=== PATIENT | female | born 1940 | race Caucasian/White ===

== ENCOUNTER 2017-11-01 16:20 | Inpatient (IN) ==
[2017-11-02] MEDS ORDERED: Ibuprofen 800 MG TABLET PO PRN (01:00)
[2017-11-02] MEDS ORDERED: Acetaminophen 325 MG TABLET PO PRN (01:00)
[2017-11-02 05:11] LABS: Basophils % 0.2 %; Eosinophils # 0.2 K/mcL (0.0-0.6); Eosinophils % 3.7 %; Hematocrit 31.8 % (35.3-44.9); Hemoglobin 10.2 g/dL (11.5-15.4); Immature Granulocytes % 1.3 % (0-4); Lymphocytes # 0.6 K/mcL (0.6-4.6); Lymphocytes % 12.7 %; Mean Corpuscular HGB Conc 32.1 g/dL (31.6-35.5); Mean Corpuscular Volume 90.3 fL (83.0-100.0); Mean Platelet Volume 10.1 fL (9.4-12.4); Monocytes # 0.3 K/mcL (0.0-1.3); Monocytes % 6.6 %; Neutrophils # 3.4 K/mcL (1.6-8.9); Platelet Count 169 K/mcL (140-400); Red Blood Count 3.52 M/mcL (3.82-4.97); Red Cell Distribution Width 14.9 % (11.5-14.5); Segmented Neutrophils % 75.5 %
[2017-11-02 05:17] LABS: INR 1.1
[2017-11-02 05:20] LABS: Activated Partial Thrombo Time 25.6 Seconds (26.0-36.0)
[2017-11-02 05:26] LABS: BUN/Creatinine Ratio 13 (6-26); Blood Urea Nitrogen 7 mg/dL (7-20); Calcium 8.8 mg/dL (8.6-10.8); Carbon Dioxide 27 mEq/L (19-29); Chloride 108 mEq/L (98-109); Glucose 108 mg/dL (70-99); Osmolality,Calculated 291 (280-300); Potassium 3.7 mEq/L (3.5-4.5); Sodium 141 mEq/L (136-145); eGFR For African Americans > 60 (> 60); eGFR For Non-African Americans > 60 (> 60)
[2017-11-02] MEDS: *HR* OxyCODONE/APAP 5/325 TABLET PO PRN (07:08)
[2017-11-02] MEDS: Aspirin Enteric Coated 325 MG Tablet PO SCH ×2 (08:28→20:36)
--- NOTE | 2017-11-02 13:39 | Internal Med History&Physical ---
Date of Encounter: 11/02/17 Time of Encounter: 13:36 Assessment and Plan (1) S/P hip replacement Current visit: Yes Status: Acute Right hip surgical incision appears clean and dry with no soft signs of infectious process. Patient participating in physical therapy but noted difficulty when attempting to stand using a walker. We will continue with current therapy. Pain well-controlled with current oral medications. Qualifiers: Laterality: right Qualified Code(s): Z96.641 - Presence of right artificial hip joint (2) HTN (hypertension) Current visit: Yes Status: Acute No acute issues. Vital signs stable. We will continue with current medications. Qualifiers: Hypertension type: essential hypertension Qualified Code(s): I10 - Essential (primary) hypertension (3) Hiatal hernia Current visit: Yes Status: Chronic Patient with recent history, during her hospital stay of esophageal obstruction secondary to her hiatal hernia requiring an EGD for disimpaction. Patient will continue on a full liquid diet until her follow-up with GI and a possible surgeon. Patient along history of hiatal hernia. We will evaluate patient's most recent labs for albumin and prealbumin. We will have dietary evaluate patient for possible need of supplements. Internal Medicine - H&P: HPI Admitted From: Intrahospital Transfer Plans for Post Hospital Care: Home History of present illness: Ms. Webb is a 77 year old female who was admitted to this facility for physical therapy and rehabilitation secondary to a right hip replacement. Patient states long history of osteoarthritis and progress, leading to the need for right hip replacement. Patient progressed well with recovery from her hip replacement patient did have one incident during her admission during which she was choking followed by several days of dysphagia. Patient was evaluated by GI who performed an EGD. Patient was found to have a very large hiatal hernia. Per patient's medical records she had been surgically treated remotely approximately 10 years ago for a hiatal hernia and relates no issues since that time. Patient had a second EGD during her hospitalization during which she had an implantation of food removed from the hiatal hernia. Patient has remained on a full liquid diet since that time with plans for her to follow with GI and surgery at recovery from her hip. Patient denies any current discomforts or shortness of breath. Past Med Surg Social Fam HX - Past Medical History Source: patient, old records reviewed Medical history: arthritis, cancer, hypertension, thyroid disease, other Psychiatric history: anxiety, depression - Past Surgical History Surgical History: appendectomy, breast surgery, , cholecystectomy, hip replacement, hysterectomy, thyroidectomy - Social History Smoking Status: Current every day smoker Smokeless Tobacco Status: No Alcohol use: none Drug use: none Current living situation: Home, With Family Activity Level: Independent ambulation Recent Out of Country Travel Within the Last 8 Weeks: No Exposure or Possible Exposure to Illness During Travel: No - Family History Mother History Unknown: Yes Father History Unknown: Yes Internal Medicine - H&P: Meds Acetaminophen [Tylenol] 650 mg PO Q6HR PRN 11/01/17 [History] Aspirin Enteric Coated [Aspirin EC] 325 mg PO BID 11/01/17 [History] Clorazepate Dipotassium [Tranxene T-Tab] 7.5 mg PO TID PRN 11/01/17 [History] Ibuprofen [Motrin] 800 mg PO BID PRN 11/01/17 [History] Levothyroxine [Synthroid] 50 mcg PO 0630 11/01/17 [History] Meloxicam [Mobic] 7.5 mg PO DAILY 11/01/17 [History] OxyCODONE/APAP 5/325 [Percocet 5/325 MG] 1 each PO Q4HR PRN 11/01/17 [History] OxyCODONE/APAP 5/325 [Percocet 5/325 MG] 2 each PO Q4HR PRN 11/01/17 [History] Propranolol [Inderal] 80 mg PO TID 11/01/17 [History] Sertraline [Zoloft] 100 mg PO DAILY 11/01/17 [History] Triamterene/Hydrochlorothiazid [Dyazide 37.5-25 Capsule] 1 cap PO DAILY [History] 3 Allergy/AdvReac Type Severity Reaction Status Date / Time No Known Allergies Allergy Verified 11/01/17 23:29 All Systems PM: A 10-system review of systems was performed and is negative for pertinent findings except as documented above in the HPI. - Constitutional Vitals: Temp Pulse Resp BP Pulse Ox 98.2 F 98 18 105/72 98 11/02/17 11:55 11/02/17 12:59 11/02/17 12:59 11/02/17 12:59 11/02/17 12:59 General appearance: Present: A&O X 3, pleasant, obese - Head Head exam: Present: atraumatic, normocephalic - Eye Eye exam: Present: EOMI - Neck Neck exam general surgery: Present: supple, trachea midline. Absent: lymphadenopathy - Respiratory Respiratory exam: Present: CTAB. Absent: accessory muscle use, rales, rhonchi, wheezes - Cardiovascular Cardiovascular exam: Present: RRR, +S1, +S2. Absent: diastolic murmur, gallop, rubs, systolic murmur - GI/Abdominal GI/Abdominal exam: Present: normal bowel sounds, soft, no peritoneal signs. Absent: distended, tenderness - Extremities Exam Extremities exam: Present: warm, radial pulses palpable and symmetrical. Absent : calf tenderness, cyanotic, pedal edema Additional comments: Right hip surgical site appears clean and intact. No edema or erythema noted. - Neurological Exam Neurological exam: Present: CN II-XII intact, oriented X3, no focal deficits. Absent: pronater drift, facial droop, speech deficit - Skin Skin exam: Present: dry, intact Internal Med - H&P Results - Labs CBC & Chem 7: 11/02/17 04:30 11/02/17 04:30 Labs: Short CBC 11/02/17 Range/Units 04:30 WBC 4.6 (4.3-11.1) K/mcL Hgb 10.2 L (11.5-15.4) g/dL Hct 31.8 L (35.3-44.9) % Plt Count 169 (140-400) K/mcL Neutrophils # 3.4 (1.6-8.9) K/mcL BMP 11/02/17 04:30 Sodium 141 Potassium 3.7 Chloride 108 Carbon Dioxide 27 BUN 7 Creatinine 0.52 L Glucose 108 H Calcium 8.8
[2017-11-03] MEDS: *HR* OxyCODONE/APAP 5/325 TABLET PO PRN ×2 (04:42→15:00)
[2017-11-03] MEDS: Aspirin Enteric Coated 325 MG Tablet PO SCH ×2 (08:41→23:35)
[2017-11-03 09:50] LABS: Alanine Aminotransferase 27 Units/L (0-55); Albumin 2.3 g/dL (3.5-5.0); Albumin/Globulin Ratio 0.7 (1.1-2.2); Alkaline Phosphatase 80 Units/L (38-126); Aspartate Amino Transferase 35 Units/L (5-34); BUN/Creatinine Ratio 10 (6-26); Bilirubin,Total 0.6 mg/dL (0.2-1.2); Blood Urea Nitrogen 6 mg/dL (7-20); Calcium 9.4 mg/dL (8.6-10.8); Carbon Dioxide 30 mEq/L (19-29); Chloride 105 mEq/L (98-109); Globulin 3.4 g/dL (2.4-3.5); Glucose 98 mg/dL (70-99); Osmolality,Calculated 294 (280-300); Potassium 3.9 mEq/L (3.5-4.5); Sodium 143 mEq/L (136-145); Total Protein 5.7 g/dL (6.0-8.3); eGFR For African Americans > 60 (> 60); eGFR For Non-African Americans > 60 (> 60)
--- NOTE | 2017-11-03 10:59 | Internal Med Progress Note ---
Date of Encounter: 11/03/17 Time of Encounter: 10:54 - Assessment and plan (1) S/P hip replacement Current Visit: Yes Status: Acute Assessment and plan: - participating in rehabilitation - Anticipate to improve - PT eval recommendation for 2-3 wks and OT for 1-2 wks - Pain management with Tylenol scheduled and oxycodone for breakthrough pain - will continue to evaluate Qualifiers: Laterality: right Qualified Code(s): Z96.641 - Presence of right artificial hip joint (2) HTN (hypertension) Current Visit: Yes Status: Acute Assessment and plan: - Essential HTN, unsure of BP goal - Today BP low, and nursing holding meds - Will continue to monitor, pt not dizzy Qualifiers: Hypertension type: essential hypertension Qualified Code(s): I10 - Essential (primary) hypertension (3) Hiatal hernia Current Visit: Yes Status: Chronic Assessment and plan: - Evaluation by GI prior to rehab indicated esophageal obstruction - Continue liquid diet for now - GI evaluation with surgical intervention post rehab - Time Spent With Patient 25 - 35 minutes - Subjective Interval history: Pt reported that she is experiencing right sided hip/back pain. Related this to the time that she being transfered in the ambulance. Pain is ache, 3/10 none radiating, localized, and better with rubbing and ice. Apetite is intact although she is eating a liquid diet Able to participate in rehabilitation as well with out any difficulties, denied any Shortness of breath and indicated that the oxygen is used to help her breathing and that suction is also used to help her as well. No abdomial pain reported, and having adequate BM/Urination as well. Happy and content with spending Sarah in Rehab. Has family involved - Constitutional Vitals: Temp Pulse Resp BP Pulse Ox 98.5 F 92 16 97/60 92 11/03/17 07:23 11/03/17 07:23 11/02/17 19:18 11/03/17 07:23 11/03/17 07:23 General appearance: Present: A&O X 3, pleasant, obese - Head Head exam: Present: atraumatic, normocephalic - Neck Neck exam general surgery: Present: supple, trachea midline. Absent: lymphadenopathy - Respiratory Respiratory exam: Present: decreased breath sounds. Absent: respiratory distress, rhonchi, stridor, wheezes Additional comments: Decreased breath sounds at the bases - Cardiovascular Cardiovascular exam: Present: RRR, +S1, +S2. Absent: diastolic murmur, gallop, rubs, systolic murmur - GI/Abdominal GI/Abdominal exam: Present: normal bowel sounds, soft, no peritoneal signs. Absent: distended, tenderness - Extremities Exam Extremities exam: Present: warm, radial pulses palpable and symmetrical. Absent : calf tenderness, cyanotic, pedal edema - Back Exam Back exam: Absent: CVA tenderness (L), CVA tenderness (R), muscle spasm Additional comments: right hip incision dry and intact. Some localized erythema but no purluance observed Back palpated and doesn't show any spine tenderness Internal Medicine: Result - Labs CBC & Chem 7: 11/02/17 04:30 11/03/17 08:25 Labs: BMP 11/03/17 08:25 Sodium 143 Potassium 3.9 Chloride 105 Carbon Dioxide 30 H BUN 6 L Creatinine 0.61 Glucose 98 Calcium 9.4 Liver Function 11/03/17 Range/Units 08:25 Total Bilirubin 0.6 (0.2-1.2) mg/dL AST 35 H (5-34) Units/L ALT 27 (0-55) Units/L Alkaline Phosphatase 80 (38-126) Units/L Albumin 2.3 L (3.5-5.0) g/dL - ABG Interpretation ABG results: PT/INR, D-dimer PT 12.0 Seconds (9.4-12.1) 11/02/17 04:30 - VTE Documentation of Mechanical Device: Graduated compression elastic hosiery Consult Discharge Plan - Plan Referrals: Nura Kohler MD [Primary Care Provider] -
[2017-11-03] MEDS: Acetaminophen 325 MG TABLET PO SCH ×2 (18:29→23:35)
[2017-11-04] MEDS: Aspirin Enteric Coated 325 MG Tablet PO SCH ×2 (09:15→21:22)
[2017-11-04] MEDS: Acetaminophen 325 MG TABLET PO SCH ×2 (09:15→19:04)
--- NOTE | 2017-11-04 10:56 | Internal Med Progress Note ---
Date of Encounter: 11/04/17 Time of Encounter: 10:53 - Assessment and plan (1) S/P hip replacement Current Visit: Yes Status: Acute Assessment and plan: - participating in rehabilitation - Anticipate to improve - PT eval recommendation for 2-3 wks and OT for 1-2 wks - Pain management with Tylenol scheduled and oxycodone for breakthrough pain - will continue to evaluate Qualifiers: Laterality: right Qualified Code(s): Z96.641 - Presence of right artificial hip joint (2) HTN (hypertension) Current Visit: Yes Status: Acute Assessment and plan: - Essential HTN, unsure of BP goal. She continues to be on the low side - Today BP low, and nursing holding meds again as needed - Changed Dyazide to q48h - Will continue to monitor, pt not dizzy Qualifiers: Hypertension type: essential hypertension Qualified Code(s): I10 - Essential (primary) hypertension (3) Hiatal hernia Current Visit: Yes Status: Chronic Assessment and plan: - Evaluation by GI prior to rehab indicated esophageal obstruction - Continue liquid diet for now - GI evaluation with surgical intervention post rehab - Time Spent With Patient less than 15 minutes - Subjective Interval history: Pt reported that she has experienced increased frequency of urination and has asked that she take her diuretic early in the day. Her pain still prevents her from sleep. Overll, believes that her apetite is still good, and remains to be motivated and in great spirits. Still using the oxygen but reported that she has been titrated down. She hadn't use the IS yet. Family are planning to surprise her on [place], and she heard about that from the town. - Constitutional Vitals: Temp Pulse Resp BP Pulse Ox 98.5 F 63 15 100/60 95 11/03/17 19:00 11/03/17 19:00 11/03/17 19:00 11/03/17 19:00 11/03/17 19:00 General appearance: Present: A&O X 3, pleasant, obese - Head Head exam: Present: atraumatic, normocephalic - Eye Eye exam: Present: PERRL, conjuntiva pink, sclera anicteric Pupils: Present: PERRL - Neck Neck exam general surgery: Present: supple, trachea midline. Absent: lymphadenopathy - Respiratory Respiratory exam: Present: CTAB. Absent: accessory muscle use, rales, rhonchi, wheezes - Cardiovascular Cardiovascular exam: Present: RRR, +S1, +S2. Absent: diastolic murmur, gallop, rubs, systolic murmur - GI/Abdominal GI/Abdominal exam: Present: normal bowel sounds, soft, no peritoneal signs. Absent: distended, tenderness - Extremities Exam Extremities exam: Present: warm, radial pulses palpable and symmetrical. Absent : calf tenderness, cyanotic, pedal edema - Neurological Exam Neurological exam: Present: CN II-XII intact, oriented X3, no focal deficits. Absent: pronater drift, facial droop, speech deficit - Skin Skin exam: Present: dry, intact Internal Medicine: Result - Labs CBC & Chem 7: 11/02/17 04:30 11/03/17 08:25 - ABG Interpretation ABG results: PT/INR, D-dimer PT 12.0 Seconds (9.4-12.1) 11/02/17 04:30 - VTE Documentation of Mechanical Device: Graduated compression elastic hosiery Consult Discharge Plan - Plan Referrals: Nura Kohler MD [Primary Care Provider] -
[2017-11-04] MEDS: *HR* OxyCODONE/APAP 5/325 TABLET PO PRN (21:22)
[2017-11-05] MEDS: Acetaminophen 325 MG TABLET PO SCH ×3 (00:47→16:27)
[2017-11-05] MEDS: *HR* OxyCODONE/APAP 5/325 TABLET PO PRN ×2 (04:58→20:22)
[2017-11-05 05:23] LABS: Basophils % 0.2 %; Eosinophils # 0.2 K/mcL (0.0-0.6); Eosinophils % 3.9 %; Hematocrit 34.8 % (35.3-44.9); Immature Granulocytes % 1.1 % (0-4); Lymphocytes # 0.8 K/mcL (0.6-4.6); Lymphocytes % 18.6 %; Mean Corpuscular HGB Conc 31.6 g/dL (31.6-35.5); Mean Corpuscular Hemoglobin 29.1 pg (28.0-33.3); Mean Corpuscular Volume 92.1 fL (83.0-100.0); Mean Platelet Volume 10.1 fL (9.4-12.4); Monocytes # 0.3 K/mcL (0.0-1.3); Monocytes % 7.4 %; Nucleated Red Blood Cells 0.5 /100 WBC (0); Platelet Count 192 K/mcL (140-400); Red Blood Count 3.78 M/mcL (3.82-4.97); Red Cell Distribution Width 15.7 % (11.5-14.5); Segmented Neutrophils % 68.8 %
[2017-11-05 06:06] LABS: Potassium 3.7 mEq/L (3.5-4.5); Sodium 141 mEq/L (136-145)
[2017-11-05 06:07] LABS: BUN/Creatinine Ratio 13 (6-26); Blood Urea Nitrogen 7 mg/dL (7-20); Carbon Dioxide 31 mEq/L (19-29); Chloride 102 mEq/L (98-109); Glucose 85 mg/dL (70-99); Osmolality,Calculated 289 (280-300); eGFR For African Americans > 60 (> 60); eGFR For Non-African Americans > 60 (> 60)
[2017-11-05] MEDS: Aspirin Enteric Coated 325 MG Tablet PO SCH ×2 (09:38→20:22)
--- NOTE | 2017-11-05 14:09 | Internal Med Progress Note ---
Date of Encounter: 11/05/17 Time of Encounter: 14:07 - Assessment and plan (1) S/P hip replacement Current Visit: Yes Status: Acute Assessment and plan: - participating in rehabilitation - Anticipate to improve - PT eval recommendation for 2-3 wks and OT for 1-2 wks - Pain management with Tylenol scheduled and oxycodone for breakthrough pain - will continue to evaluate Qualifiers: Laterality: right Qualified Code(s): Z96.641 - Presence of right artificial hip joint (2) HTN (hypertension) Current Visit: Yes Status: Acute Assessment and plan: - Essential HTN, unsure of BP goal but given no MO/strokes in the past, goal should be <150/90. She continues to be on the low side - Today BP low, and nursing holding meds again as needed - Hold BP meds if <110/60 - Changed Dyazide to q48h - Would consider decreasing propranolol - Will continue to monitor, pt not dizzy Qualifiers: Hypertension type: essential hypertension Qualified Code(s): I10 - Essential (primary) hypertension (3) Hiatal hernia Current Visit: Yes Status: Chronic Assessment and plan: - Evaluation by GI prior to rehab indicated esophageal obstruction - Continue liquid diet for now - GI evaluation with surgical intervention post rehab - Time Spent With Patient 25 - 35 minutes - Subjective Interval history: Pt reported that she is finally happy about getting a full night sleep. She has requested the pain meds before bed, and her urinary frequency has decreased after we have adjusted her diuretic medication. She continues to be on half a liter of oxygen and she is experiencing runny nose at times, with some intermittent bleeds as well. None that continued. She continues to use the suction as before, and denied any GI/ symtpoms. Her pain is overall is controlled and the patch has helped with her back. - Constitutional Vitals: Temp Pulse Resp BP Pulse Ox 99.3 F 75 18 93/55 84 11/05/17 07:00 11/05/17 07:00 11/04/17 19:00 11/05/17 07:00 11/05/17 07:00 General appearance: Present: A&O X 3, pleasant, obese - Head Head exam: Present: atraumatic, normocephalic - Eye Eye exam: Present: PERRL, conjuntiva pink, sclera anicteric Pupils: Present: PERRL - Neck Neck exam general surgery: Present: supple, trachea midline. Absent: lymphadenopathy - Respiratory Respiratory exam: Present: CTAB. Absent: accessory muscle use, rales, rhonchi, wheezes - Cardiovascular Cardiovascular exam: Present: RRR, +S1, +S2. Absent: diastolic murmur, gallop, rubs, systolic murmur - GI/Abdominal GI/Abdominal exam: Present: normal bowel sounds, soft, no peritoneal signs. Absent: distended, tenderness - Extremities Exam Extremities exam: Present: warm, radial pulses palpable and symmetrical. Absent : calf tenderness, cyanotic, pedal edema - Neurological Exam Neurological exam: Present: CN II-XII intact, oriented X3, no focal deficits. Absent: pronater drift, facial droop, speech deficit - Skin Skin exam: Present: dry, intact Internal Medicine: Result - Labs CBC & Chem 7: 11/05/17 04:30 11/05/17 04:30 Labs: Short CBC 11/05/17 Range/Units 04:30 WBC 4.4 (4.3-11.1) K/mcL Hgb 11.0 L (11.5-15.4) g/dL Hct 34.8 L (35.3-44.9) % Plt Count 192 (140-400) K/mcL Neutrophils # 3.0 (1.6-8.9) K/mcL BMP 11/05/17 04:30 Sodium 141 Potassium 3.7 Chloride 102 Carbon Dioxide 31 H BUN 7 Creatinine 0.56 L Glucose 85 Calcium 9.0 - ABG Interpretation ABG results: PT/INR, D-dimer PT 12.0 Seconds (9.4-12.1) 11/02/17 04:30 - VTE Documentation of Mechanical Device: Graduated compression elastic hosiery Consult Discharge Plan - Plan Referrals: Nura Kohler MD [Primary Care Provider] -
[2017-11-06] MEDS: Acetaminophen 325 MG TABLET PO SCH ×3 (00:30→16:35)
[2017-11-06] MEDS: *HR* OxyCODONE/APAP 5/325 TABLET PO PRN ×2 (05:27→19:57)
[2017-11-06] MEDS: Aspirin Enteric Coated 325 MG Tablet PO SCH ×2 (08:23→19:57)
--- NOTE | 2017-11-06 13:16 | Internal Med Progress Note ---
Date of Encounter: 11/06/17 Time of Encounter: 13:14 - Assessment and plan (1) S/P hip replacement Current Visit: Yes Status: Acute Assessment and plan: - participating in rehabilitation PT/OT - Anticipate to improve -follow up with ortho as scheduled. - Pain management with Tylenol scheduled and oxycodone for breakthrough pain - will continue to evaluate Qualifiers: Laterality: right Qualified Code(s): Z96.641 - Presence of right artificial hip joint (2) HTN (hypertension) Current Visit: Yes Status: Acute Assessment and plan: - stable with current meds. monitor BP Qualifiers: Hypertension type: essential hypertension Qualified Code(s): I10 - Essential (primary) hypertension - Time Spent With Patient less than 15 minutes - Subjective Interval history: participating well with therapy. states pain is controlled with current pain regimen. bowels moving normally. appetite good and maintaining hydration. denies any needs at this time. - Constitutional Vitals: Temp Pulse Resp BP Pulse Ox 97.9 F 76 18 107/63 89 11/06/17 06:59 11/06/17 06:59 11/06/17 06:59 11/06/17 06:59 11/06/17 06:59 General appearance: Present: A&O X 3, pleasant, obese, answers questions appropriately - Head Head exam: Present: atraumatic, normocephalic - Eye Eye exam: Present: PERRL, conjuntiva pink, sclera anicteric Pupils: Present: PERRL - Neck Neck exam general surgery: Present: supple, trachea midline. Absent: lymphadenopathy - Respiratory Respiratory exam: Present: CTAB. Absent: accessory muscle use, rales, rhonchi, wheezes - Cardiovascular Cardiovascular exam: Present: RRR, +S1, +S2. Absent: diastolic murmur, gallop, rubs, systolic murmur - GI/Abdominal GI/Abdominal exam: Present: normal bowel sounds, soft, no peritoneal signs. Absent: distended, tenderness - Extremities Exam Extremities exam: Present: warm, radial pulses palpable and symmetrical. Absent : calf tenderness, cyanotic, pedal edema Additional comments: slight nonpitting BLE edema - Neurological Exam Neurological exam: Present: CN II-XII intact, oriented X3, no focal deficits. Absent: pronater drift, facial droop, speech deficit - Skin Skin exam: Present: dry, intact Additional comments: right hip: drsg appears dry and intact. no redness or signs of infection. Internal Medicine: Result - Labs CBC & Chem 7: 11/05/17 04:30 11/05/17 04:30 - ABG Interpretation ABG results: PT/INR, D-dimer PT 12.0 Seconds (9.4-12.1) 11/02/17 04:30 - VTE Documentation of Mechanical Device: Graduated compression elastic hosiery Consult Discharge Plan - Plan Referrals: Nura Kohler MD [Primary Care Provider] -
[2017-11-07] MEDS: Acetaminophen 325 MG TABLET PO SCH ×3 (01:12→17:46)
[2017-11-07] MEDS: *HR* OxyCODONE/APAP 5/325 TABLET PO PRN ×2 (06:07→19:55)
[2017-11-07] MEDS: Aspirin Enteric Coated 325 MG Tablet PO SCH ×2 (09:07→19:54)
--- NOTE | 2017-11-07 11:21 | Internal Med Progress Note ---
Date of Encounter: 11/07/17 Time of Encounter: 11:19 - Assessment and plan (1) S/P hip replacement Current Visit: Yes Status: Acute Assessment and plan: - participating in rehabilitation PT/OT -follow up with ortho as scheduled. - Pain management with Tylenol scheduled and oxycodone for breakthrough pain - will continue to evaluate Qualifiers: Laterality: right Qualified Code(s): Z96.641 - Presence of right artificial hip joint (2) HTN (hypertension) Current Visit: Yes Status: Acute Assessment and plan: - stable with current meds. monitor BP Qualifiers: Hypertension type: essential hypertension Qualified Code(s): I10 - Essential (primary) hypertension - Time Spent With Patient less than 15 minutes - Subjective Interval history: wearing O2 at 1 liter with sats running 92%. encouraged and instructed incentive spirometer use. will attempt to tirate off of O2. pt state she ends up on oxygen for at least 1 week after every surgery she has had. participating well with therapy. states pain is controlled with current pain regimen. bowels moving normally. appetite good and maintaining hydration. denies any needs at this time. - Constitutional Vitals: Temp Pulse Resp BP Pulse Ox 97.8 F 67 16 143/54 92 11/07/17 07:24 11/07/17 07:24 11/07/17 07:24 11/07/17 07:24 11/07/17 07:24 General appearance: Present: A&O X 3, pleasant, obese, answers questions appropriately - Head Head exam: Present: atraumatic, normocephalic - Eye Eye exam: Present: PERRL, conjuntiva pink, sclera anicteric Pupils: Present: PERRL - Neck Neck exam general surgery: Present: supple, trachea midline. Absent: lymphadenopathy - Respiratory Respiratory exam: Present: CTAB. Absent: accessory muscle use, rales, rhonchi, wheezes - Cardiovascular Cardiovascular exam: Present: RRR, +S1, +S2. Absent: diastolic murmur, gallop, rubs, systolic murmur - GI/Abdominal GI/Abdominal exam: Present: normal bowel sounds, soft, no peritoneal signs. Absent: distended, tenderness - Extremities Exam Extremities exam: Present: warm, radial pulses palpable and symmetrical. Absent : calf tenderness, cyanotic, pedal edema - Neurological Exam Neurological exam: Present: CN II-XII intact, oriented X3, no focal deficits. Absent: pronater drift, facial droop, speech deficit - Skin Skin exam: Present: dry, intact Additional comments: right hip drg dry and intact with minimal swelling. no redness or warmth. no signs of infection. Internal Medicine: Result - Labs CBC & Chem 7: 11/05/17 04:30 11/05/17 04:30 - ABG Interpretation ABG results: PT/INR, D-dimer PT 12.0 Seconds (9.4-12.1) 11/02/17 04:30 - VTE Documentation of Mechanical Device: Graduated compression elastic hosiery Consult Discharge Plan - Plan Referrals: Nura Kohler MD [Primary Care Provider] -
--- NOTE | 2017-11-07 15:24 | Discharge Summary ---
Date of Encounter: 11/07/17 Time of Encounter: 15:22 - Discharge Diagnosis (1) S/P hip replacement Priority: Primary Status: Acute Qualifiers: Laterality: right Qualified Code(s): Z96.641 - Presence of right artificial hip joint - Discharge Medications Home Medications: Acetaminophen [Tylenol] 650 mg PO Q6HR PRN 11/01/17 [History] Aspirin Enteric Coated [Aspirin EC] 325 mg PO BID 11/01/17 [History] Clorazepate Dipotassium [Tranxene T-Tab] 7.5 mg PO TID PRN 11/01/17 [History] Ibuprofen [Motrin] 800 mg PO BID PRN 11/01/17 [History] Levothyroxine [Synthroid] 50 mcg PO 0630 11/01/17 [History] Meloxicam [Mobic] 7.5 mg PO DAILY 11/01/17 [History] OxyCODONE/APAP 5/325 [Percocet 5/325 MG] 1 each PO Q4HR PRN 11/01/17 [History] OxyCODONE/APAP 5/325 [Percocet 5/325 MG] 2 each PO Q4HR PRN 11/01/17 [History] Propranolol [Inderal] 80 mg PO TID 11/01/17 [History] Sertraline [Zoloft] 100 mg PO DAILY 11/01/17 [History] Triamterene/Hydrochlorothiazid [Dyazide 37.5-25 Capsule] 1 cap PO DAILY [History] Allergies/Adverse Reactions: 3 Allergy/AdvReac Type Severity Reaction Status Date / Time No Known Allergies Allergy Verified 11/01/17 23:29 Date of admission: 11/01/17 22:09 Primary care physician: Nura Kohler MD Consults: 11/02/17 00:55 Consult to Occupational Therapy [CONS] Routine Comment: Evaluate, develop and implement POC Reason for Consult: eval/tx Consult to Physical Therapy [CONS] Routine Comment: Evaluate, develop and implement POC Reason for Consult: eval/tx Consult to Recreational Therapy [CONS] Routine Comment: Evaluate, develop and implement POC Consult to Metal Finish Inspector [CONS] Routine Reason for SW Consult: dc planning 11/02/17 12:13 Consult to Speech Therapy [CONS] Routine Comment: Evaluate, develop and implement POC Reason for Consult: dysphasia after surgery, currently full liquid diet Call Completed: Yes Discharging clinician: Niles Rosado Anticipated date of discharge: 11/08/17 - Patient Status Disposition: Home, Self-Care Condition: Good Functional capacity at discharge: uses cane/walker Overall status at discharge: patient is progressing back to baseline - Discharge Instructions Follow Up With: Nura Kohler MD [Primary Care Provider] - - Diet and Activity Activity: ambulate only with your walker Diet: advance to your usual diet Interval History: Patient came in postop for rehabilitation Hospital course: Ms. Webb is a 77 year old female Patient started household distances with a walker and is doing very well. She was here for rehabilitation status post total hip replacement for ON - Time Spent with Patient Total time spent providing and/or coordinating discharge services: Less than 30 minutes - Constitutional Vitals: Temp Pulse Resp BP Pulse Ox 97.8 F 67 16 143/54 92 11/07/17 07:24 11/07/17 07:24 11/07/17 07:24 11/07/17 07:24 11/07/17 07:24 General appearance: Present: A&O X 3, pleasant, obese, answers questions appropriately - Head Head exam: Present: atraumatic, normal inspection, normocephalic - Neck Neck exam general surgery: Present: supple, trachea midline. Absent: lymphadenopathy - Respiratory Respiratory exam: Present: CTAB. Absent: accessory muscle use, rales, rhonchi, wheezes - Cardiovascular Cardiovascular exam: Present: RRR, +S1, +S2. Absent: diastolic murmur, gallop, rubs, systolic murmur - VTE Documentation of Mechanical Device: Graduated compression elastic hosiery
[2017-11-08] MEDS: Acetaminophen 325 MG TABLET PO SCH ×2 (01:02→08:17)
[2017-11-08] MEDS: *HR* OxyCODONE/APAP 5/325 TABLET PO PRN ×2 (04:51→10:22)
[2017-11-08 08:07] VITALS: BP 106/62
[2017-11-08] MEDS: Aspirin Enteric Coated 325 MG Tablet PO SCH (08:16)
--- NOTE | 2017-11-08 11:37 | Event Note ---
Date of Encounter: 11/08/17 Time of Encounter: 11:36 No acute issues. Patient had progressed while with physical therapy during hospital stay. No complaints at time of discharge. Patient being discharged today to home. Patient to follow up with orthopedics with an appointment this afternoon
== END 2017-11-08 11:30 | disposition home or self-care (01) | DRG 560 ==
LOC: INPGRE 22:09
PROVIDERS: ADMIT Internal Medicine; ATTEND Internal Medicine